=== PATIENT | female | born 1955 | race Caucasian/White ===

== ENCOUNTER → 2024-09-27 13:02 | Outpatient (REF) | payer OTHER, SELFPAY | LOC: RAD 13:02 | PROVIDERS: ATTENDING PHYSICIAN Internal Medicine Cardiovascular Disease; FAMILY PHYSICIAN Student in an Organized Health Care Education/Training Program | DX: F17.200 Nicotine dependence, unspecified, uncomplicated (principal); J98.01 Acute bronchospasm | CPT/HCPCS: 71046 ==

== ENCOUNTER 2024-11-26 21:44 | Emergency (ER) | payer OTHER, SELFPAY ==
[2024-11-26 21:48] VITALS: BP 104/61
[2024-11-26 22:32] LABS: % Basophils 0.3 % (0-2); % Eosinophils 0.4 % (0-6); % Immature Granulocytes 0.3 % (0-0.5); % Lymphocytes 6.1 % (20.5-51.1); % Monocytes 6.9 % (1.7-9.3); Absolute Basophils 0.1 10^3/uL (0-0.2); Absolute Eosinophils 0.1 10^3/uL (0-0.7); Absolute Immature Granulocytes 0.1 10^3/uL (0-0.05); Absolute Monocytes 1.1 10^3/uL (0.1-0.6); Absolute Neutrophils 13.7 10^3/uL (1.4-6.5); Hematocrit 45.4 % (37.0-47.0); Hemoglobin 15.4 g/dL (12.0-16.0); Mean Corp Hgb Conc. 33.9 g/dL (33.0-37.0); Mean Corpuscular Hgb 31.4 pg (27.0-31.0); Mean Corpuscular Volume 92.5 fL (81.0-99.0); Mean Platelet Volume 11.4 fL (7.4-10.4); Nucleated Red Blood Cells % 0 %; Platelet Count 269 10^3/uL (130-400); Red Blood Cell Count 4.91 10^6/uL (4.20-5.40); Red Cell Dist. Width 13.1 % (11.5-14.5); White Blood Cell Count 15.9 10^3/uL (4.8-10.8)
[2024-11-26 22:48] LABS: ALT (SGPT) 32 U/L (0-35); AST (SGOT) 31 U/L (14-36); Albumin 4.7 g/dl (3.5-5.0); Alkaline Phosphatase 74 U/L (38-126); Blood Urea Nitrogen 20 mg/dl (7-17); Calcium 9.5 mg/dl (8.4-10.2); Carbon Dioxide 25 mmol/L (22-30); Chloride 101 mmol/L (98-107); Glucose 131 mg/dl (70-99); Lipase 130 U/L (23-300); Potassium 4.5 mmol/L (3.5-5.1); Sodium 139 mmol/L (135-145); Total Bilirubin 0.4 mg/dl (0.2-1.3); Total Protein 7.2 g/dl (6.3-8.2); eGFR > 60.00
--- NOTE | 2024-11-26 22:56 | ED.GENMED ---
History of Present Illness
General
Chief Complaint: Abdominal Symptoms
Time Seen by Provider: 11/26/24 22:55
History of Present Illness
History of Present Illness:
TIME OF INITIAL ENCOUNTER: 11:05 PM
HPI: Patient came in by ambulance related to nausea, vomiting, and diarrhea for the past 3 hours associated with chills. Family was concerned because she was also nearly passing out. She has chronic back pain in her back continues to hurt
currently. She states that she has a history of an GA related to NSAID use.
EXAM:
GENERAL: Appears somewhat generally weak and debilitated
HEENT: Slightly dry oral mucosa
CARDIOVASCULAR: No murmurs, normal heart rate, regular rhythm, No chest wall tenderness
PULMONARY: No respiratory distress, breath sounds are clear and equal
ABDOMEN: Soft with no peritoneal signs, minimal diffuse abdominal tenderness with no focal findings
NEUROLOGIC: Good strength all extremities, no coordination deficits
PSYCHIATRIC: Appropriate mental status, normal insight and judgement
EXTREMITIES: Nontender, no edema, moves all extremities equally
SKIN: No rash, no lesions
NUMBER AND COMPLEXITY OF PROBLEMS ADDRESSED AT THE ENCOUNTER
� Chronic conditions affecting care: High blood pressure, hyperlipidemia, CAD, impaired vision, iron deficiency anemia
� Acute Exacerbation and/or Progression of Chronic Illness: This is an acute problem
� Differential Diagnosis includes: Viral gastroenteritis, foodborne illness, doubt appendicitis or bowel obstruction as she has associated diarrhea
AMOUNT AND/OR COMPLEXITY OF DATA TO BE REVIEWED AND ANALYZED
� I performed an independent evaluation of and my interpretation is:
EKG: Sinus 74, normal axis, nonspecific ST abnormality
CT:
X-rays:
Laboratory Studies: White count 15.9, hemoglobin 15.4, chemistries unremarkable
Other:
� Review of other/old records: The patient was seen here yesterday with bronchitis symptoms
� Clinical information was obtained by an independent historian: I spoke to her children and at bedside
� Prescriptions/Medications Considered but not given:
� Further testing considered but not performed:
RISK OF COMPLICATIONS AND/OR MORBIDITY OR MORTALITY OF PATIENT MANAGEMENT
� Social determinants of health affecting care: Lives at home
� Discussion with other providers:
� Escalation of care including admission/observation vs risk of discharge considered: The patient was given IV fluids as well as Zofran.
ANY OTHER UPDATES:
12:45 AM: I reassessed patient, the patient feels markedly improved. Leukocytosis is noted however she has been able to tolerate p.o. and does not report any significant pain. EKG was obtained which was unremarkable.
Past History
Past History
ED Past Medical History: HTN, Hypercholesterolemia and Other (back pain/restless leg syndrome. Status post left total hip)
ED Past Surgical History: and Orthopedic (Bilateral hip surgery)
Social History
Tobacco: Smoker
Alcohol: Occasional
Drug: None
Personal: Single
Living: with family
Employment: Employed
Family History
Family History: CAD and Other
Phy Exam
Physical Exam
Physical Exam:
See HPI
Course
Orders/Labs/Results
Orders:
Orders
11/26/24 21:59
Complete Blood Count/With Diff Urgent
Comprehensive Metabolic Panel Urgent
Lipase Urgent
11/26/24 22:01
Electrocardiogram (*1) Urgent
Reason for Study: Syncope
11/26/24 23:05
0.9% Sodium Chloride 1000 ml [Nss] 1,000 ml IV BOLUS
Famotidine [Pepcid] 20 mg IV NOW STA
Ondansetron Injectable [Zofran] 4 mg IV NOW STA
11/26/24 23:08
Electrocardiogram (*1) Urgent
Reason for Study: Vertigo / Dizzy
EKG- Treatment ONCE
Abnormal Lab Results
11/26/24
21:59
WBC 15.9 H 10^3/uL
(4.8-10.8)
MCH 31.4 H pg
(27.0-31.0)
MPV 11.4 H fL
(7.4-10.4)
Abs Immat Gran (auto) 0.1 H 10^3/uL
(0-0.05)
Absolute Neuts (auto) 13.7 H 10^3/uL
(1.4-6.5)
Absolute Lymphs (auto) 1.0 L 10^3/uL
(1.2-3.4)
Absolute Monos (auto) 1.1 H 10^3/uL
(0.1-0.6)
Neutrophils % 86.0 H %
(42.2-75.2)
Lymphocytes % 6.1 L %
(20.5-51.1)
BUN 20 H mg/dl
(7-17)
Glucose 131 H mg/dl
(70-99)
11/26/24 21:59
11/26/24 21:59
Vital Signs
Initial and Last Documented VS:
Initial Vital Signs
Temp Pulse Resp BP Pulse Ox
36.6 C 92 18 104/61 97
11/26/24 21:48 11/26/24 21:48 11/26/24 21:48 11/26/24 21:48 11/26/24 21:48
Last Documented Vital Signs
Temp Pulse Resp BP Pulse Ox
36.6 C 92 18 104/61 97
11/26/24 21:48 11/26/24 21:48 11/26/24 21:48 11/26/24 21:48 11/26/24 23:04
*Critical Care Note
Total Time (30-74mins, 75-104mins- exclusive of procedures): Not Applicable
ED Attending Note
-
Portions of this chart may have been created with voice recognition software.� Occasional wrong word or��sound alike� substitutions may have occurred due to the inherent limitations of voice recognition software.
Discharge Plan
Departure
Prescriptions:
No Action
gabapentin 300 MG capsule
300 mg PO TID
cyanocobalamin (vitamin B-12) 1,000 MCG tablet
1,000 mcg PO DAILY
aspirin 81 MG tablet,delayed release (DR/EC)
81 mg PO DAILY
rosuvastatin 20 MG tablet
20 mg PO DAILY
duloxetine 30 MG capsule,delayed release(DR/EC)
30 mg PO DAILY
oxycodone 10 MG tablet
10 mg PO Q4 PRN (Reason: pain)
biotin 2,500 MCG capsule
2,500 mcg PO DAILY
multivitamin with folic acid [Tab-A-Olena] 1 TABLET tablet
1 tab PO DAILY
icosapent ethyl [Vascepa] 1 GM capsule
2 gm PO BID
cholecalciferol (vitamin D3) 5,000 UNIT tablet,disintegrating
5,000 unit PO DAILY
metoprolol succinate 25 MG tablet extended release 24 hr
25 mg PO DAILY Qty: 30 3RF
hydrochlorothiazide 12.5 MG capsule
12.5 mg PO DAILY
losartan 25 MG tablet
100 mg PO DAILY
Cbd Oil
50 mg sublingual BID
Combivent Respimat 1 PUFF mist
1 puff inhalation BID Qty: 1 0RF
albuterol sulfate [ProAir HFA] 90 mcg/actuation HFA aerosol inhaler
1 puff inhalation Q4HPRN PRN (Reason: shortness of breath) Qty: 8.5 0RF
Referrals:
Naila Frederick DO [Family Provider] -
Interventions
Interventions:
*General Assessment Last Done: 11/26/24 23:04
ED- Fall Risk Assessment Last Done: 11/26/24 23:04
*ED COVID-19 Vaccine History Last Done: 11/26/24 23:04
BF-Cekhlr-Mzbhuarfnd Assessment Last Done: 11/26/24 23:04
Discharge Date and Time
Print Language: URDU
[2024-11-26 23:04] VITALS: BP 112/68; BMI 37.4
[2024-11-26] MEDS: NSS 1000 IV (23:41)
[2024-11-26] MEDS: ZOFRAN 4 MG IV (23:41)
[2024-11-26] MEDS: PEPCID 20 MG IV (23:41)
[2024-11-27] VITALS: BP 108/62
[2024-11-27 01:00] VITALS: BP 110/66
== END 2024-11-27 02:18 | disposition home or self-care (01) ==
LOC: EMR 21:44
PROVIDERS: Emergency Medicine; EMERGENCY PHYSICIAN Emergency Medicine; FAMILY PHYSICIAN Physical Medicine & Rehabilitation
DX: R11.2 Nausea with vomiting, unspecified (principal); R19.7 Diarrhea, unspecified; D72.829 Elevated white blood cell count, unspecified; E78.00 Pure hypercholesterolemia, unspecified; F17.200 Nicotine dependence, unspecified, uncomplicated; G25.81 Restless legs syndrome; I10 Essential (primary) hypertension; I25.2 Old myocardial infarction; Z82.49 Family history of ischemic heart disease and other diseases of the circulatory system
CPT/HCPCS: 99283; 96374; 96375; 80053; 83690; 85025; 93005